=== PATIENT | female | born 1945 | race Caucasian/White ===

== ENCOUNTER 2017-01-30 10:52 | Emergency (ER) | payer MEDICARE, BC ==
[2017-01-30 12:16] VITALS: BP 142/71
--- NOTE | 2017-01-30 12:45 | UC ---
Upper Extremity HPI - HPI Summary HPI Summary: 71 y/o female presents to the urgent care c/o RT wrist pain and some abrasions after falling on the side walk this morning at 0700am. Pt states her abrasion are in the chin, RT knee and left hand. She is able to move her wrist in all directions and hold and lift objects. She has Hx of Carpal Tunel release in 2002. Pain is 8/10 with movement and 2/10 at rest. Denies numbness or tingling over the RT hand, fever, SOB, chest pain, N/V/D. - History of Current Complaint Chief Complaint: UCUpperExtremity Stated Complaint: S/P FALL- RT WRIST/HAND/CHIN INJURY Time Seen by Provider: 01/30/17 12:30 Hx Obtained From: Patient ?: No Onset/Duration: Sudden Onset, Lasting Hours, Still Present Severity Initially: Moderate Severity Currently: Moderate Pain Intensity: 8 - movement Pain Scale Used: 0-10 Numeric Location Of Pain: Is Discrete @ - RT wrist Character: Sharp Aggravating Factor(s): Movement, Flexion Alleviating Factor(s): Ice Associated Signs And Symptoms: Positive: Swelling, Bruising, Other - superficial abrasion on chin, LF hand and RT knee. Negative: Redness, Fever, Numbness/Tingling - Risk Factors Non-Orthopedic Risk Factor: Negative DVT Risk Factors: Negative Septic Arthritis Risk Factor: Negative - Allergies/Home Medications Allergies/Adverse Reactions: Allergies Allergy/AdvReac Type Severity Reaction Status Date / Time No Known Allergies Allergy Verified 01/30/17 12:16 Home Medications: Home Medications Acetaminophen [Tylenol] 325 mg PO PRN 01/30/17 [History] Cholecalciferol [Vitamin D] 1,000 unit PO DAILY 01/30/17 [History Confirmed ] Irbesartan 150 mg PO DAILY 01/30/17 [History Confirmed 01/30/17] Multiple Vitamins W/ Minerals [Multivitamin Adults] 1 tab PO DAILY 01/30/17 [ History Confirmed 01/30/17] Pantoprazole Sodium 40 mg PO DAILY 01/30/17 [History Confirmed 01/30/17] PMH/Surg Hx/FS Hx/Imm Hx Previously Healthy: Yes Cardiovascular History: Hypertension GI/ History: Gastroesophageal Reflux - Surgical History Surgical History: Yes Surgery Procedure, Year, and Place: R carpel tunnel, L knee replacement - Family History Known Family History: Positive: Hypertension - Social History Occupation: Retired Lives: With Family Alcohol Use: Daily Alcohol Amount: wine Substance Use Type: None Smoking Status (MU): Never Smoked Tobacco Review of Systems Constitutional: Negative Skin: Bruising - abrasions in the chin, LF hand and RT knee Eyes: Negative ENT: Negative Respiratory: Negative Cardiovascular: Negative Gastrointestinal: Negative Genitourinary: Negative Motor: Negative Neurovascular: Negative Musculoskeletal: Other: - RT wrist pain and RT hand pain Neurological: Negative Psychological: Negative All Other Systems Reviewed And Are Negative: Yes Physical Exam Triage Information Reviewed: Yes Appearance: Well-Appearing, No Pain Distress, Well-Nourished, Thin Vital Signs: Initial Vital Signs Temp 98.8 F 01/30/17 12:07 Pulse 83 01/30/17 12:07 Resp 16 01/30/17 12:07 BP 142/71 01/30/17 12:07 Pulse Ox 100 01/30/17 12:07 Vital Signs Reviewed: Yes Eye Exam: Normal Eyes: Positive: Conjunctiva Clear - PERRLA, EOMI, ENT Exam: Normal ENT: Positive: Normal ENT inspection, Hearing grossly normal, Pharynx normal, TMs normal Dental Exam: Normal Neck exam: Normal Neck: Positive: Supple, Nontender, No Lymphadenopathy Respiratory Exam: Normal Respiratory: Positive: Chest non-tender, Lungs clear, Normal breath sounds Cardiovascular Exam: Normal Cardiovascular: Positive: RRR, No Murmur, Pulses Normal Abdominal Exam: Normal Abdomen Description: Positive: Nontender, No Organomegaly, Soft. Negative: CVA Tenderness (R), CVA Tenderness (L) Bowel Sounds: Positive: Present Musculoskeletal: Positive: Other: - RT wrist with point tenderness over the RT thenar eminence w/ mild brusing observed. FROM of RT thumb, No pain or swelling elicited in the anatomic snuffbox. limited ROM of RT wrist due to pain. positive pulses, capillary reill brisk, positive sensation WNL, Neurological Exam: Normal Psychological Exam: Normal Skin: Positive: significant lesion(s) - Khushboo with a discrete superficial laceration abour 0.3mm in size, no bleeding, mild tenderness on palpation., Other - Superficial abrasions on LF hand and RT knee Upper Extremity Course/Dx - Course Course Of Treatment: 71 y/o female presents to the urgent care c/o RT wrist pain and some abrasions after falling on the side walk this morning at 0700am. Pt states her abrasion are in the chin, RT knee and left hand. She is able to move her wrist in all directions and hold and lift objects. She has Hx of Carpal Tunel release in 2002. Pain is 8/10 with movement and 2/10 at rest. Denies numbness or tingling over the RT hand, fever, SOB, chest pain, N/V/D. HX obtained. RT hand and Rt wrist X-ray ordered, X-ray reaad by radiologist and reviwed by me. Impression: Small bone fracture along the dorsal aspect of the Rt wrist, suggestive of an avulsion of triquetal fracture. Pt's case discussed with Dr Soni who agreed to immobilize Pt wrist with thumb spica and f /u with Orthopedic for further mamagement.. Pt's RT wrist immobilized with a thumb spica splint. Advised to take Ibuprofen PO prn to alleviate swelling and pain, apply ice and rest. Strongly advised to f/u with Orthopedic Dr Garg in 1 day since we couldn't r/o scaphoid fracture at this moment. Pt superfecial abrassion cleaned. Chinwith positive superficial discrete laceration about 0.3mm. lesion cleaned and irrigated, dried and dermabond glue applied and 4 sterile strips placed over to cover lesion. Pt tolerated well procedure. Rt hand neurovascular intact. Pt left the clininc ambulating and A&OX3 - Differential Dx/Diagnosis Differential Diagnosis/HQI/PQRI: Arthritis, Contusion, Fracture (Closed), Laceration, Strain, Sprain, Other - superficial abrasion, contusion Provider Diagnoses: 1- RT wrist pain s/p fall, possible avulsion fracture of the RT triquetal carpal bone. 2-Chin with a discrete superficial laceration. 3 -Superficial abrasion of LF koki and RT knee - Physician Notification/Consults Discussed Patient Care With: Yesi Soni - Dr Soni agreed with PT care and treatment Discharge - Discharge Plan Condition: Stable Disposition: HOME Patient Education Materials: Wrist Fracture in Adults (ED) Referrals: Neto Velazquez DO [Primary Care Provider] - If Needed Piper Garg MD [Medical Doctor] - 1 Day (Pt with probable triquetal avulsion of the Rt carpal bone. Please evaluate Thank you) Additional Instructions: 1-Please take Ibuprofen PO q6-8hrs prn as directed to alleviate pain and swelling 2-Please apply ice, keep your hand immobilized with the splint at all times. 3- Please f/u with Orthopedic in 1 day for further treatment.
--- NOTE | 2017-01-30 13:10 | RAD ---
HISTORY: Right wrist pain status post fall COMPARISONS: None VIEWS: 5, Frontal, lateral, and oblique views of the right wrist with frontal and lateral views of the right and FINDINGS: BONE DENSITY: Normal. BONES: There is a small bone fragment along the dorsal aspect of the wrist, suggestive of a triquetral avulsion fracture. JOINTS: There is osteoarthritis of the first CMC joint and MCP joint ALIGNMENT: There is no dislocation. SOFT TISSUES: Unremarkable. OTHER FINDINGS: None. IMPRESSION: 1. SMALL BONE FRAGMENT ALONG THE DORSAL ASPECT OF THE WRIST SUGGESTIVE OF AN AVULSION FRACTURE OF THE PROXIMAL CARPAL ROW. 2. OSTEOARTHRITIS.
== END 2017-01-30 13:58 | disposition home or self-care (01) ==
LOC: UCCORT 10:52
DX: M25.531 Pain in right wrist (principal); S01.81XA Laceration without foreign body of other part of head, initial encounter; S60.512A Abrasion of left hand, initial encounter; S80.211A Abrasion, right knee, initial encounter; W17.89XA Other fall from one level to another, initial encounter; Y93.01 Activity, walking, marching and hiking; Y92.480 Sidewalk as the place of occurrence of the external cause; I10 Essential (primary) hypertension; K21.9 Gastro-esophageal reflux disease without esophagitis
CPT/HCPCS: 99213; G0463

== ENCOUNTER 2018-05-19 14:09 | Emergency (ER) | payer MEDICARE, BC ==
[2018-05-19 14:32] VITALS: BP 148/68
[2018-05-19] MEDS ORDERED: Cyclobenzaprine TAB* 10 MG PO ONE (14:48)
--- NOTE | 2018-05-19 14:54 | UC ---
UC General HPI - HPI Summary HPI Summary: pt states she awoke with pain in her mid back 3 days ago, R>L. no hx injury or over use but does have scoliosis. worse when twists her trunk, bends or coughs. denies any associated cp, sob or pain with deep breaths. no associated fever, numb/weak extremities, abdominal pain or saddle anesthesia. no bowel/bladder dysfunction. tx with tylenol and no relief. - History of Current Complaint Chief Complaint: UCBackPain Stated Complaint: BACK PAIN Time Seen by Provider: 05/19/18 14:39 Hx Obtained From: Patient Timing: Constant Pain Intensity: 10 Associated Signs & Symptoms: Positive: Back Pain. Negative: Abdominal Pain, Chest Pain, Fever, SOB, Wheezing - Allergy/Home Medications Allergies/Adverse Reactions: Allergies Allergy/AdvReac Type Severity Reaction Status Date / Time No Known Allergies Allergy Verified 05/19/18 14:30 Home Medications: Home Medications Acetaminophen [Acetaminophen Extra Strength] 1,000 mg PO Q6H PRN 05/19/18 [ History Confirmed 05/19/18] PMH/Surg Hx/FS Hx/Imm Hx - Additional Past Medical History Additional PMH: mild renal insufficiency(no tx) but avoid NSAIDS, scoliosis Cardiovascular History: Hypertension GI/ History: Gastroesophageal Reflux - Surgical History Surgical History: Yes Surgery Procedure, Year, and Place: R carpel tunnel, L knee replacement - Family History Known Family History: Positive: Hypertension - Social History Occupation: Retired Lives: With Family Alcohol Use: Daily Alcohol Amount: wine Substance Use Type: None Smoking Status (MU): Never Smoked Tobacco - Immunization History Vaccination Up to Date: Yes Review of Systems All Other Systems Reviewed And Are Negative: Yes Constitutional: Positive: Negative Skin: Positive: Negative Eyes: Positive: Negative ENT: Positive: Negative Respiratory: Negative: Shortness Of Breath Cardiovascular: Negative: Chest Pain Gastrointestinal: Negative: Abdominal Pain Genitourinary: Positive: Negative Motor: Positive: Negative Neurovascular: Positive: Negative Musculoskeletal: Positive: Negative Neurological: Negative: Weakness, Paresthesia, Numbness Psychological: Positive: Negative Is Patient Immunocompromised?: No Physical Exam Triage Information Reviewed: Yes Appearance: Well-Appearing Vital Signs: Initial Vital Signs Temp 98.5 F 05/19/18 14:28 Pulse 98 05/19/18 14:28 Resp 16 05/19/18 14:28 BP 148/68 05/19/18 14:28 Pulse Ox 98 05/19/18 14:28 Vital Signs Reviewed: Yes Eyes: Positive: Conjunctiva Clear ENT: Positive: Normal ENT inspection Neck: Positive: Supple, Nontender, No Lymphadenopathy, Other: - c-spine non tender. Respiratory: Positive: Chest non-tender, Lungs clear, Normal breath sounds Cardiovascular: Positive: RRR, No Murmur, Pulses Normal - BUE's Abdomen Description: Positive: Nontender, No Organomegaly, Soft. Negative: Distended, Guarding, Pulsatile Mass Bowel Sounds: Positive: Present Musculoskeletal: Positive: Other: - Thoracic and lumbar regions: no rash. scoliosis appreciated. Tender over upper/mid thoracic spine area and R medial scapular border. Pain worsens with palpation and active ROM. 5/5 strenght, 2+ reflexes and sensation intact x4. No saddle anesthesia. Normal steady gait. 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 There is no definite radiographic evidence of an acute fracture or severe spondylolisthesis. Course/Dx - Course Course Of Treatment: no concern for infection, AA, cardiopulmonary pathology or acute fx. - Diagnoses Provider Diagnosis: Thoracic back pain Discharge - Sign-Out/Discharge Documenting (check all that apply): Patient Departure All imaging exams completed and their final reports reviewed: Yes - Discharge Plan Condition: Stable Disposition: HOME Prescriptions: Cyclobenzaprine TAB* [Flexeril 10 MG TAB*] 10 mg PO TID PRN #10 tab PRN Reason: Spasms - Back methylPREDNISolone [Medrol Dosepak 4 MG*] 0 mg PO .SEE GABBY INSTRUCTION #1 tab Patient Education Materials: Back Pain (ED) Referrals: Kathi Gale [Primary Care Provider] - 5 Days - Billing Disposition and Condition Condition: STABLE Disposition: Home
== END 2018-05-19 15:52 | disposition home or self-care (01) ==
LOC: UCCORT 14:09
DX: M54.6 Pain in thoracic spine (principal); I10 Essential (primary) hypertension
CPT/HCPCS: 72070; 99212; A9270-GY; G0463